=== PATIENT | male | born 1980 | race Caucasian/White ===

== ENCOUNTER 2017-04-12 16:52 | Emergency (ER) | payer MEDICAID ==
[~2017-04-12] VITALS: Ht 182.9 cm; Wt 85.7 kg
[2017-04-12 16:58] VITALS: BP 146/95
[2017-04-12] MEDS ORDERED: TETRACAINE HCL/PF 0.5% UD 2 ML BOTTLE ONE (17:31)
[2017-04-12] MEDS ORDERED: FLUORESCEIN SODIUM OPHTH 1 EA STRIP ONE (17:31)
--- NOTE | 2017-04-12 17:35 | NUR ---
TO ER CHAIR FOR EVAL, FLUORESCEIN/TETRACAINE AND SLITLAMP AT BEDSIDE
--- NOTE | 2017-04-12 17:35 | NUR ---
DR HERNANDEZ INFORMED
--- NOTE | 2017-04-12 18:18 | NUR ---
Patient discharged to home in stable condition. Written and verbal after care instructions given. Patient verbalizes understanding of instruction.
== END 2017-04-12 18:20 | disposition home or self-care (01) ==
LOC: ER 16:54
DX: H33.22 Serous retinal detachment, left eye (principal); W51.XXXA Accidental striking against or bumped into by another person, initial encounter; Y93.89 Activity, other specified; Y92.89 Other specified places as the place of occurrence of the external cause; Y99.8 Other external cause status
CPT/HCPCS: A4606; Z7610